=== PATIENT | male | born 1995 | race Caucasian/White ===

== ENCOUNTER 2017-02-15 14:21 | Emergency (ER) | payer OTHER ==
[~2017-02-15] VITALS: Ht 182.9 cm; Wt 72.5 kg
[~2017-02-15 14:21] MED LIST: BENA25CA4 PO; VICO5TA PO
[2017-02-15 17:29] VITALS: BP 113/57
[2017-02-15] MEDS ORDERED: NORCOTAB PO (17:33)
[2017-02-15] MEDS ORDERED: NORCO 5/325MG TABLET (BULK FOR ED) PO ONE (17:45)
--- NOTE | 2017-02-16 07:45 | REP ---
RIGHT ANKLE SERIES: Four views. HISTORY: Question subluxation. Trauma. FINDINGS: There is moderate anterolateral soft-tissue swelling. Ankle mortise is intact. No fracture is seen. A small accessory ossicle is noted adjacent to the distal talus. IMPRESSION: Moderate anterolateral swelling. No fracture seen. Small accessory ossicle at the distal talus. Signed by Manpreet Shea MD 02/16/2017 08:28 A
== END 2017-02-15 17:45 | disposition home or self-care (01) ==
LOC: M ED 16:06
DX: S93.401A Sprain of unspecified ligament of right ankle, initial encounter (principal); W10.9XXA Fall (on) (from) unspecified stairs and steps, initial encounter; Y92.019 Unspecified place in single-family (private) house as the place of occurrence of the external cause; Y93.89 Activity, other specified; Y99.9 Unspecified external cause status; F17.200 Nicotine dependence, unspecified, uncomplicated; Z79.899 Other long term (current) drug therapy; Z87.39 Personal history of other diseases of the musculoskeletal system and connective tissue

== ENCOUNTER → 2017-05-30 | Outpatient (REF) | payer OTHER ==
[~2017-05-30] MED LIST changes: +CEPH500T PO; +NORCOTAB PO; +VALA1TAB2 PO
== END ==
LOC: M LAB REF 09:55
PROVIDERS: ATTEND Physician Assistant Surgical
DX: L29.3 Anogenital pruritus, unspecified (principal)

== ENCOUNTER 2017-06-01 15:36 | Emergency (ER) | payer OTHER ==
[~2017-06-01] VITALS: Ht 182.9 cm; Wt 70.5 kg
[~2017-06-01 15:36] MED LIST changes: -CEPH500T PO; -VALA1TAB2 PO
[2017-06-01] MEDS ORDERED: CEPH500T PO (15:48)
[2017-06-01] MEDS ORDERED: VALA1TAB2 PO (15:48)
[2017-06-01] MEDS ORDERED: ADACEL/BOOSTRIX VACCINE (DIPHTH/PERTUSS/ACELL/TETANUS)0.5ML SYR (90715) IM ONE (17:45)
[2017-06-01 18:56] VITALS: BP 138/62
--- NOTE | 2017-06-01 20:22 | REP ---
Right hand series: Two views. History: Question thenar eminence foreign body. Findings: AP and lateral views of the right hand are presented. No opaque foreign body is seen. No acute bony abnormality is noted. Signed by Manpreet Shea MD 06/02/2017 09:29 A
== END 2017-06-01 18:57 | disposition home or self-care (01) ==
LOC: M ED 15:36 → EEVIPCON 15:36 → M ED 18:57
DX: S61.431A Puncture wound without foreign body of right hand, initial encounter (principal); L02.511 Cutaneous abscess of right hand; W26.8XXA Contact with other sharp object(s), not elsewhere classified, initial encounter; Y92.59 Other trade areas as the place of occurrence of the external cause; Y93.89 Activity, other specified; Y99.8 Other external cause status; F17.210 Nicotine dependence, cigarettes, uncomplicated; Z79.2 Long term (current) use of antibiotics; Z88.8 Allergy status to other drugs, medicaments and biological substances